=== PATIENT | male | born 1955 | race Caucasian/White ===

== ENCOUNTER 2018-12-04 08:35 | Emergency (ER) | payer SELFPAY ==
--- NOTE | 2018-12-04 08:54 | CT ---
CT brain. HISTORY: Left-sided weakness. Noncontrast enhanced CT images of the brain obtained. The brain is unremarkable. No evidence of intracranial masses, hemorrhages, strokes or contusion seen . Ventricles are of normal size. IMPRESSION: Normal CT brain. Findings discussed with Dr. Leavitt at 8:49 AM on 12/04/2018. Code CR
[2018-12-04 09:19] LABS: #Basophils 0.1 thou/uL (0.0-0.2); #Eosinphils 0.4 thou/uL (0.0-0.7); #Lymphocytes 1.5 thou/uL (1.20-3.40); #Monocytes 0.6 thou/uL (0.11-0.59); %Basophils 1.2 % (0.0-1.0); %Eosinophils 5.4 % (0.0-10.0); %Lymphocytes 23.3 % (21.0-51.0); %Monocytes 8.7 % (0.0-10.0); %Neutrophils 61.3 % (42.0-75.0); Hemoglobin 13.9 g/dL (14.0-18.0); Mean Corpuscular HGB CONC 33.2 g/dL (32.0-36.0); Mean Corpuscular Volume 90.3 fL (78.0-98.0); Mean Platelet Volume 7.6 fL (7.4-10.4); Platelet Count 159 thou/uL (130-400); RBC Distribution Width 13.1 % (11.5-14.5); Red Blood Cell (RBC) Count 4.64 mill/uL (4.70-6.10); White Blood Cell (WBC) Count 6.5 thou/uL (4.8-10.8)
--- NOTE | 2018-12-04 09:20 | CT ---
CAROTID AND INTRACRANIAL CTA: HISTORY: Left arm weakness. TECHNIQUE: Contrast-enhanced CTA of the neck and intracranial CTA performed with 2D and 3D reconstruction images performed. FINDINGS: Multilevel mid cervical changes of spondylosis with broad-based central osteophytes seen, resulting i n multilevel central spinal stenosis. There appears to be critical central spinal stenosis at C2-3 due to broad-based posterior osteophyte. The vertebral arteries are patent. The aortic arch is unremarkable. The right and left common carotid arteries are patent. There is approximately 30% proximal right medial ICA stenosis due to predominantly noncalcified right ICA plaque in the proximal right ICA. More distally, the right and left internal carotid arteries are patent. The TREE, MCA, and DUSTLESS [employer]PERATOR vessels are patent. IMPRESSION: 1. There is 30% proximal right internal carotid artery stenosis. 2: Cervical spinal stenosis. Transcribed Date/Time: 12/04/2018 10:32 AM
[2018-12-04 09:28] LABS: INR-International Normal Ratio 1.1; PTT 29.6 SEC (22.9-36.1); Prothrombin Time 13.8 SEC (12.0-14.7)
--- NOTE | 2018-12-04 09:33 | RAD ---
Exam: Chest one view HISTORY:Facial droop. Slurred speech. Left arm weakness. Comparison: None FINDINGS: Cardiac silhouette:Enlarged Pulmonary vessels: Normal Costophrenic angles: Clear LUNGS: No masses or consolidation. Pneumothorax: None Osseous abnormalities: None IMPRESSION: No acute cardiopulmonary process.
[2018-12-04 09:43] LABS: ALT (SGPT) 15 U/L (8-55); AST (SGOT) 15 U/L (5-34); Alkaline Phosphatase 61 U/L (40-150); Anion Gap 12 mmol/L (10-20); BUN (Urea Nitrogen) 16 mg/dL (8.4-25.7); Bilirubin, Total 0.4 mg/dL (0.2-1.2); CK (CPK) 203 U/L (30-200); Calc. Creatinine Clearance 0 mL/min (70-130); Calcium 9.4 mg/dL (7.8-10.44); Carbon Dioxide 26 mmol/L (23-31); Chloride 102 mmol/L (98-107); Estimated GFR-MDRD 80; Globulin 3.5 g/dL (2.4-3.5); Glucose 147 mg/dL (80-115); Potassium 3.6 mmol/L (3.5-5.1); Protein, Total 7.5 g/dL (5.8-8.1); Sodium 136 mmol/L (136-145)
[2018-12-04] MEDS ORDERED: Aspirin 325 MG TAB ONE (10:40)
--- NOTE | 2018-12-08 11:04 | EKG ---
Test Reason : AMS Blood Pressure : / mmHG Vent. Rate : 077 BPM Atrial Rate : 077 BPM P-R Int : 160 ms QRS Dur : 118 ms QT Int : 388 ms P-R-T Axes : 045 001 053 degrees QTc Int : 439 ms Normal sinus rhythm Non-specific intra-ventricular conduction delay Borderline ECG Confirmed by JANE YOUNGER ([id number]), editor magazine KAROLINE SARAVIA ([id number]) on 12/08/2018 11:03:27 AM Referred By: Confirmed By:JANE YOUNGER
== END 2018-12-04 11:32 | disposition left against medical advice (07) ==
LOC: ERS 08:35
DX: R47.81 Slurred speech (principal); R41.82 Altered mental status, unspecified; R53.1 Weakness; E78.5 Hyperlipidemia, unspecified; I10 Essential (primary) hypertension; Z79.899 Other long term (current) drug therapy
CPT/HCPCS: 36415; 36416; 70450; 70496; 70498; 71045; 80053; 82550; 84484; 85025; 85610; 85730; 93005

== ENCOUNTER 2020-11-10 15:23 | Outpatient (CLI) | payer MEDICARE | END 2020-11-10 15:24 | disposition home or self-care (01) | LOC: BICULT 15:23 | PROVIDERS: ATTEND Family Medicine | DX: R60.0 Localized edema (principal) ==

== ENCOUNTER 2020-11-12 09:28 | Inpatient (IN) | payer MEDICARE ==
[2020-11-12 11:59] VITALS: BMI 40.8
[2020-11-12] MEDS ORDERED: Acetaminophen 325 MG TAB PO PRN (13:25)
[2020-11-12 13:55] LABS: #Basophils 0.1 thou/uL (0.0-0.2); #Eosinphils 0.5 thou/uL (0.0-0.7); #Lymphocytes 1.9 thou/uL (1.20-3.40); #Monocytes 0.8 thou/uL (0.11-0.59); #Neutrophils 5.2 thou/uL (1.40-6.50); %Eosinophils 5.3 % (0.0-10.0); %Lymphocytes 22.3 % (21.0-51.0); %Monocytes 9.5 % (0.0-10.0); %Neutrophils 61.8 % (42.0-75.0); Hemoglobin 11.9 g/dL (14.0-18.0); Mean Corpuscular HGB CONC 34.3 g/dL (32.0-36.0); Mean Corpuscular Hemoglobin 31.1 pg (27.0-31.0); Mean Corpuscular Volume 90.8 fL (78.0-98.0); Mean Platelet Volume 6.6 fL (7.4-10.4); Platelet Count 252 thou/uL (130-400); RBC Distribution Width 12.9 % (11.5-14.5); Red Blood Cell (RBC) Count 3.83 mill/uL (4.70-6.10); White Blood Cell (WBC) Count 8.5 thou/uL (4.8-10.8)
[2020-11-12 14:20] LABS: ALT (SGPT) 20 U/L (8-55); AST (SGOT) 18 U/L (5-34); Albumin 3.7 g/dL (3.4-4.8); Alkaline Phosphatase 60 U/L (40-110); Anion Gap 11 mmol/L (10-20); BUN (Urea Nitrogen) 25 mg/dL (8.4-25.7); Bilirubin, Total 0.4 mg/dL (0.2-1.2); Calc. Creatinine Clearance 89 mL/min (70-130); Calcium 9.9 mg/dL (7.8-10.44); Carbon Dioxide 26 mmol/L (23-31); Chloride 103 mmol/L (98-107); Globulin 4.7 g/dL (2.4-3.5); Glucose 96 mg/dL (80-115); Potassium 4.4 mmol/L (3.5-5.1); Protein, Total 8.4 g/dL (5.8-8.1); Sodium 136 mmol/L (136-145)
[2020-11-12] MEDS: Sodium Chloride 0.9% 1,000 ML IV SCH (16:11)
[2020-11-12] MEDS ORDERED: Atorvastatin Calcium 10 MG TAB PO SCH (18:00)
[2020-11-12] MEDS: NIFEdipine XL 90 MG TAB PO SCH (20:27)
[2020-11-12] MEDS: DorzolamidE/Timolol 2%/0.5% Ophth Soln 10 ml Bottle R EYE SCH (20:28)
[2020-11-12] MEDS: Brimonidine Tartrate 0.2% Ophth Soln 5 ml Bottle R EYE SCH (20:30)
[2020-11-12] MEDS: Pilocarpine 1% Ophth Drops 15 ML BOT R EYE SCH (20:30)
[2020-11-13 04:55] LABS: SARS-CoV-2 NAA Rapid Test Not Detected (NotDetected)
[2020-11-13] MEDS: Sodium Chloride 0.9% 1,000 ML IV SCH (05:12)
[2020-11-13 05:33] LABS: #Basophils 0.1 thou/uL (0.0-0.2); #Eosinphils 0.4 thou/uL (0.0-0.7); #Lymphocytes 1.6 thou/uL (1.20-3.40); #Monocytes 0.8 thou/uL (0.11-0.59); #Neutrophils 5.4 thou/uL (1.40-6.50); %Basophils 0.8 % (0.0-1.0); %Eosinophils 5.1 % (0.0-10.0); %Lymphocytes 18.9 % (21.0-51.0); %Monocytes 10.2 % (0.0-10.0); Mean Corpuscular Hemoglobin 29.8 pg (27.0-31.0); Mean Corpuscular Volume 90.2 fL (78.0-98.0); Mean Platelet Volume 6.4 fL (7.4-10.4); Platelet Count 220 thou/uL (130-400); Red Blood Cell (RBC) Count 3.71 mill/uL (4.70-6.10); White Blood Cell (WBC) Count 8.3 thou/uL (4.8-10.8)
[2020-11-13 05:51] LABS: Hemoglobin A1c 7.4 % (4.0-6.0)
[2020-11-13 05:53] LABS: Anion Gap 13 mmol/L (10-20); BUN (Urea Nitrogen) 21 mg/dL (8.4-25.7); Calc. Creatinine Clearance 96 mL/min (70-130); Carbon Dioxide 25 mmol/L (23-31); Chloride 104 mmol/L (98-107); Glucose 139 mg/dL (80-115); Potassium 4.6 mmol/L (3.5-5.1); Sodium 137 mmol/L (136-145)
[2020-11-13 06:14] LABS: Free T4 (Free Thyroxine) 0.63 ng/dL (0.70-1.48); Thyroid Stimulating Hormone 10.2481 uIU/mL (0.35-4.94)
[2020-11-13] MEDS: Brimonidine Tartrate 0.2% Ophth Soln 5 ml Bottle R EYE SCH ×2 (08:47→20:52)
[2020-11-13] MEDS: Pilocarpine 1% Ophth Drops 15 ML BOT R EYE SCH ×2 (08:47→20:53)
[2020-11-13] MEDS: Levothyroxine Sodium 25 MCG TAB PO SCH (12:50)
[2020-11-13] MEDS ORDERED: Atorvastatin Calcium 10 MG TAB PO SCH (17:00)
[2020-11-13] MEDS: DorzolamidE/Timolol 2%/0.5% Ophth Soln 10 ml Bottle R EYE SCH (20:53)
[2020-11-13] MEDS: NIFEdipine XL 90 MG TAB PO SCH (20:54)
[2020-11-14 04:01] LABS: #Eosinphils 0.4 thou/uL (0.0-0.7); #Lymphocytes 1.5 thou/uL (1.20-3.40); #Monocytes 0.8 thou/uL (0.11-0.59); #Neutrophils 4.9 thou/uL (1.40-6.50); %Basophils 0.3 % (0.0-1.0); %Eosinophils 5.4 % (0.0-10.0); %Lymphocytes 19.8 % (21.0-51.0); %Monocytes 9.8 % (0.0-10.0); %Neutrophils 64.7 % (42.0-75.0); Hemoglobin 11.3 g/dL (14.0-18.0); Mean Corpuscular HGB CONC 32.4 g/dL (32.0-36.0); Mean Corpuscular Hemoglobin 29.5 pg (27.0-31.0); Mean Platelet Volume 6.9 fL (7.4-10.4); Platelet Count 218 thou/uL (130-400); RBC Distribution Width 12.9 % (11.5-14.5); Red Blood Cell (RBC) Count 3.85 mill/uL (4.70-6.10); White Blood Cell (WBC) Count 7.6 thou/uL (4.8-10.8)
[2020-11-14 04:20] LABS: Anion Gap 11 mmol/L (10-20); BUN (Urea Nitrogen) 18 mg/dL (8.4-25.7); Calc. Creatinine Clearance 134 mL/min (70-130); Calcium 8.9 mg/dL (7.8-10.44); Carbon Dioxide 23 mmol/L (23-31); Chloride 105 mmol/L (98-107); Glucose 136 mg/dL (80-115); Potassium 3.8 mmol/L (3.5-5.1); Sodium 135 mmol/L (136-145)
[2020-11-14] MEDS: Levothyroxine Sodium 25 MCG TAB PO SCH (05:41)
[2020-11-14 09:30] VITALS: BP 116/71; TEMP 97.9
[2020-11-14] MEDS: Brimonidine Tartrate 0.2% Ophth Soln 5 ml Bottle R EYE SCH (10:05)
[2020-11-14] MEDS: Pilocarpine 1% Ophth Drops 15 ML BOT R EYE SCH (10:05)
[2020-11-15] MEDS ORDERED: Levothyroxine Sodium 112 MCG TAB PO SCH (06:00)
== END 2020-11-14 13:35 | disposition home or self-care (01) | DRG 683 ==
LOC: ONC 09:28 → OBSVTOIN 11-13 15:49
PROVIDERS: ADMIT Internal Medicine; ATTEND Internal Medicine
DX: N17.9 Acute kidney failure, unspecified (principal); Z68.41 Body mass index [BMI] 40.0-44.9, adult; H40.9 Unspecified glaucoma; I10 Essential (primary) hypertension; R10.9 Unspecified abdominal pain; E03.9 Hypothyroidism, unspecified; I89.0 Lymphedema, not elsewhere classified; E11.9 Type 2 diabetes mellitus without complications; T36.8X5A Adverse effect of other systemic antibiotics, initial encounter; I88.0 Nonspecific mesenteric lymphadenitis; E66.01 Morbid (severe) obesity due to excess calories; Z20.822 Contact with and (suspected) exposure to COVID-19
CPT/HCPCS: 36415; 74176; 76770; 80048; 80053; 83036; 83615; 84439; 84443; 85025; 86140; 93306; G0378; U0002; U0005

== ENCOUNTER 2020-11-26 12:57 | Outpatient (CLI) | payer MEDICARE | END 2020-11-26 12:58 | disposition home or self-care (01) | LOC: BICULT 12:57 | PROVIDERS: ATTEND Family Medicine | DX: R60.0 Localized edema (principal) | CPT/HCPCS: 93970 ==

== ENCOUNTER 2021-03-12 17:20 | Emergency (ER) | payer MEDICARE ==
[2021-03-12 19:21] LABS: #Eosinphils 0.4 thou/uL (0.0-0.7); #Lymphocytes 1.6 thou/uL (1.20-3.40); #Monocytes 0.9 thou/uL (0.11-0.59); #Neutrophils 6.1 thou/uL (1.40-6.50); %Basophils 0.5 % (0.0-1.0); %Eosinophils 4.6 % (0.0-10.0); %Monocytes 10.3 % (0.0-10.0); %Neutrophils 66.7 % (42.0-75.0); Hemoglobin 12.8 g/dL (14.0-18.0); Mean Corpuscular HGB CONC 32.7 g/dL (32.0-36.0); Mean Corpuscular Hemoglobin 29.2 pg (27.0-31.0); Mean Corpuscular Volume 89.1 fL (78.0-98.0); Mean Platelet Volume 7.7 fL (7.4-10.4); Platelet Count 185 thou/uL (130-400); RBC Distribution Width 13.8 % (11.5-14.5); White Blood Cell (WBC) Count 9.1 thou/uL (4.8-10.8)
[2021-03-12 19:39] LABS: ALT (SGPT) 13 U/L (8-55); AST (SGOT) 13 U/L (5-34); Albumin 3.7 g/dL (3.4-4.8); Alkaline Phosphatase 62 U/L (40-110); Anion Gap 12 mmol/L (10-20); BUN (Urea Nitrogen) 16 mg/dL (8.4-25.7); Bilirubin, Total 0.6 mg/dL (0.2-1.2); Calc. Creatinine Clearance 0 mL/min (70-130); Calcium 9.3 mg/dL (7.8-10.44); Carbon Dioxide 30 mmol/L (23-31); Chloride 100 mmol/L (98-107); Globulin 4.2 g/dL (2.4-3.5); Glucose 133 mg/dL (80-115); Potassium 3.7 mmol/L (3.5-5.1); Protein, Total 7.9 g/dL (5.8-8.1); Sodium 138 mmol/L (136-145)
== END 2021-03-12 21:17 | disposition home or self-care (01) ==
LOC: ERS 17:20
DX: I89.0 Lymphedema, not elsewhere classified (principal); E78.5 Hyperlipidemia, unspecified; I10 Essential (primary) hypertension; Z86.69 Personal history of other diseases of the nervous system and sense organs; Z79.810 Long term (current) use of selective estrogen receptor modulators (SERMs); Z79.899 Other long term (current) drug therapy
CPT/HCPCS: 36415; 85025

== ENCOUNTER 2023-01-19 12:57 | Inpatient (IN) | payer MEDICARE ==
[2023-01-19 14:12] LABS: #Basophils 0.1 thou/uL (0.0-0.2); #Eosinphils 0.1 thou/uL (0.0-0.7); #Monocytes 0.9 thou/uL (0.11-0.59); %Basophils 0.3 % (0.0-1.0); %Eosinophils 0.4 % (0.0-10.0); %Lymphocytes 8.2 % (21.0-51.0); %Monocytes 5.7 % (0.0-10.0); Hematocrit 38.1 % (42.0-52.0); Hemoglobin 12.4 g/dL (14.0-18.0); Mean Corpuscular HGB CONC 32.5 g/dL (32.0-36.0); Mean Corpuscular Volume 89.2 fl (78.0-98.0); Mean Platelet Volume 9.7 fL (7.4-10.4); Platelet Count 195 10x3/uL (130-400); RBC Distribution Width 14.6 % (11.5-14.5); Red Blood Cell (RBC) Count 4.27 mill/uL (4.70-6.10); White Blood Cell (WBC) Count 15.5 10x3/uL (4.8-10.8)
[2023-01-19 14:45] LABS: ALT (SGPT) 28 U/L (8-55); AST (SGOT) 79 U/L (5-34); Albumin 3.5 g/dL (3.4-4.8); Alkaline Phosphatase 53 U/L (40-110); Anion Gap 15 mmol/L (10-20); BUN (Urea Nitrogen) 28 mg/dL (8.4-25.7); Bilirubin, Total 1.1 mg/dL (0.2-1.2); Calc. Creatinine Clearance 0 mL/min (70-130); Carbon Dioxide 27 mmol/L (23-31); Chloride 96 mmol/L (98-107); Estimated GFR 58; Globulin 4.1 g/dL (2.4-3.5); Glucose 95 mg/dL (80-115); Lipase 4 U/L (8-78); Potassium 3.7 mmol/L (3.5-5.1); Protein, Total 7.6 g/dL (5.8-8.1); Sodium 134 mmol/L (136-145)
[2023-01-19 16:01] LABS: Bacteria/HPF 4+ HPF (None Seen); Bilirubin Negative (Negative); Blood, Urine 2+ (Negative); CAUTI Indications for Culture Alt mental st,lethar; Clarity Turbid (Clear); Glucose, Urine (Dipstick) Normal (Negative); Ketone, Urine Negative (Negative); Leukocyte 250 Leu/uL (Negative); Nitrite Negative (Negative); Protein, Urine (Dipstick) 50 mg/dL (Neg-Trace); RBC/HPF 0-3 HPF (0-3); Specific Gravity, Urine 1.021 (1.002-1.036); Urobilinogen Normal mg/dL (Less than 2); WBC/HPF 21-50 HPF (0-3); pH, Urine 5.5 (5.0-9.0)
[2023-01-19 16:02] LABS: Urine Culture Reflex Yes Yes
[2023-01-19] MEDS ORDERED: cefTRIAXone (ROCEPHIN) 2 GM VIAL ONE (16:47)
[2023-01-19 18:15] LABS: Lactic Acid 1.7 mmol/L (0.5-2.2)
[2023-01-19] MEDS ORDERED: Ondansetron PF 4 MG/2 ML Vial IVP PRN (19:33)
[2023-01-19] MEDS ORDERED: Acetaminophen 325 MG TAB PO PRN (19:33)
[2023-01-19] MEDS ORDERED: Sodium Chloride 0.9% 1,000 ML IV SCH (19:45)
[2023-01-19 20:52] VITALS: BMI 44.4
[2023-01-19] MEDS: Atorvastatin Calcium 10 MG TAB PO SCH (21:54)
[2023-01-19] MEDS: Brimonidine Tartrate 0.2% Ophth Soln 5 ml Bottle R EYE SCH (22:07)
[2023-01-19] MEDS: Pilocarpine 1% Ophth Drops 15 ML BOT R EYE SCH (22:08)
[2023-01-19] MEDS: DorzolamidE/Timolol 2%/0.5% Ophth Soln 10 ml Bottle R EYE SCH (22:08)
[2023-01-19] MEDS: Heparin 5,000 UNITS/ML VIAL SC SCH (22:14)
[2023-01-20 04:27] LABS: #Eosinphils 0.1 thou/uL (0.0-0.7); #Monocytes 0.7 thou/uL (0.11-0.59); #Neutrophils 10.6 thou/uL (1.40-6.50); %Basophils 0.3 % (0.0-1.0); %Eosinophils 0.5 % (0.0-10.0); %Lymphocytes 8.7 % (21.0-51.0); %Monocytes 5.5 % (0.0-10.0); %Neutrophils 83.6 % (42.0-75.0); Hemoglobin 11.2 g/dL (14.0-18.0); Mean Corpuscular Hemoglobin 28.1 pg (27.0-31.0); Mean Corpuscular Volume 87.9 fl (78.0-98.0); Mean Platelet Volume 9.5 fL (7.4-10.4); Platelet Count 163 10x3/uL (130-400); RBC Distribution Width 14.5 % (11.5-14.5); Red Blood Cell (RBC) Count 3.98 mill/uL (4.70-6.10); White Blood Cell (WBC) Count 12.6 10x3/uL (4.8-10.8)
[2023-01-20 04:53] LABS: Lactic Acid 1.6 mmol/L (0.5-2.2)
[2023-01-20 04:57] LABS: ALT (SGPT) 33 U/L (8-55); AST (SGOT) 76 U/L (5-34); Albumin 3.1 g/dL (3.4-4.8); Alkaline Phosphatase 55 U/L (40-110); Anion Gap 15 mmol/L (10-20); BUN (Urea Nitrogen) 20 mg/dL (8.4-25.7); Bilirubin, Total 0.8 mg/dL (0.2-1.2); Calc. Creatinine Clearance 172 mL/min (70-130); Calcium 8.4 mg/dL (7.8-10.44); Carbon Dioxide 25 mmol/L (23-31); Chloride 100 mmol/L (98-107); Estimated GFR 82; Globulin 3.8 g/dL (2.4-3.5); Glucose 153 mg/dL (80-115); Potassium 3.5 mmol/L (3.5-5.1); Protein, Total 6.9 g/dL (5.8-8.1); Sodium 136 mmol/L (136-145)
[2023-01-20] MEDS: Levothyroxine Sodium 100 MCG TAB PO SCH (06:15)
[2023-01-20] MEDS ORDERED: Heparin 10,000 UNITS/ 10 ML VIAL ONE (08:18)
[2023-01-20] MEDS: Heparin 5,000 UNITS/ML VIAL SC SCH ×3 (09:43→21:15)
[2023-01-20] MEDS: Brimonidine Tartrate 0.2% Ophth Soln 5 ml Bottle R EYE SCH ×2 (09:54→21:14)
[2023-01-20] MEDS: Pilocarpine 1% Ophth Drops 15 ML BOT R EYE SCH ×2 (09:54→21:14)
[2023-01-20] MEDS ORDERED: Dextrose 50% Abboject 50 ML SYRINGE SLOW IVP PRN (10:51)
[2023-01-20] MEDS ORDERED: Dextrose 5% in Water 1,000 ML IV PRN (10:51)
[2023-01-20] MEDS ORDERED: HumaLOG 300 UNITS/3 ML VIAL SC PRN (10:51)
[2023-01-20] MEDS ORDERED: Glucagon 1 MG/ML KIT IM PRN (10:51)
[2023-01-20] MEDS: metFORMIN 500 MG TAB PO SCH (16:07)
[2023-01-20] MEDS ORDERED: cefTRIAXone\\ROCEPHIN 1 GM in Sodium Chloride 0.9% 100 ML IVPB SCH (17:00)
[2023-01-20] MEDS ORDERED: traMADol HCl 50 MG TAB PO PRN (19:52)
[2023-01-20] MEDS: DorzolamidE/Timolol 2%/0.5% Ophth Soln 10 ml Bottle R EYE SCH (21:14)
[2023-01-20] MEDS: Atorvastatin Calcium 10 MG TAB PO SCH (21:25)
[2023-01-21] MEDS: Levothyroxine Sodium 100 MCG TAB PO SCH (05:36)
[2023-01-21 05:45] LABS: #Eosinphils 0.1 thou/uL (0.0-0.7); #Monocytes 0.8 thou/uL (0.11-0.59); #Neutrophils 11.3 thou/uL (1.40-6.50); %Basophils 0.3 % (0.0-1.0); %Eosinophils 0.7 % (0.0-10.0); %Lymphocytes 8.5 % (21.0-51.0); Hemoglobin 10.8 g/dL (14.0-18.0); Mean Corpuscular HGB CONC 32.7 g/dL (32.0-36.0); Mean Corpuscular Hemoglobin 29.3 pg (27.0-31.0); Mean Corpuscular Volume 89.4 fl (78.0-98.0); Platelet Count 172 10x3/uL (130-400); RBC Distribution Width 14.6 % (11.5-14.5); Red Blood Cell (RBC) Count 3.69 mill/uL (4.70-6.10); White Blood Cell (WBC) Count 13.6 10x3/uL (4.8-10.8)
[2023-01-21 06:15] LABS: Anion Gap 13 mmol/L (10-20); BUN (Urea Nitrogen) 14 mg/dL (8.4-25.7); Calc. Creatinine Clearance 200 mL/min (70-130); Calcium 7.9 mg/dL (7.8-10.44); Carbon Dioxide 23 mmol/L (23-31); Chloride 100 mmol/L (98-107); Estimated GFR 95; Glucose 167 mg/dL (80-115); Sodium 133 mmol/L (136-145)
[2023-01-21] MEDS: metFORMIN 500 MG TAB PO SCH ×2 (06:34→15:51)
[2023-01-21] MEDS ORDERED: Electrolyte Replacement Protocol 1 EACH FS SCH (07:15)
[2023-01-21] MEDS ORDERED: Electrolyte Replacement Protocol FS PRN (07:15)
[2023-01-21] MEDS ORDERED: Potassium Chloride 20 MEQ TAB PO SCH (08:00)
[2023-01-21] MEDS: Glimepiride 1 MG TAB PO SCH (08:53)
[2023-01-21] MEDS: Pilocarpine 1% Ophth Drops 15 ML BOT R EYE SCH ×2 (08:54→21:22)
[2023-01-21] MEDS: Heparin 5,000 UNITS/ML VIAL SC SCH (08:54)
[2023-01-21] MEDS: Brimonidine Tartrate 0.2% Ophth Soln 5 ml Bottle R EYE SCH ×2 (08:54→21:21)
[2023-01-21] MEDS ORDERED: Iopamidol-370 76% 500 ML MDV (1 ML CHARGE) ONE (10:47)
[2023-01-21] MEDS: Cefepime 2 GM in Sodium Chloride 0.9% 100 ML IVPB SCH (12:00)
[2023-01-21 14:21] LABS: Potassium 3.4 mmol/L (3.5-5.1)
[2023-01-21] MEDS ORDERED: HYDROcodone/Acetaminophen 5/325 mg Tablet PO PRN (18:53)
[2023-01-21] MEDS: DorzolamidE/Timolol 2%/0.5% Ophth Soln 10 ml Bottle R EYE SCH (21:21)
[2023-01-21] MEDS: Atorvastatin Calcium 10 MG TAB PO SCH (21:21)
[2023-01-21] MEDS: Linezolid 600 MG in Premix Bag 1 BAG IVPB SCH (21:22)
[2023-01-22] MEDS: Cefepime 2 GM in Sodium Chloride 0.9% 100 ML IVPB SCH ×3 (00:07→23:43)
[2023-01-22 06:06] LABS: #Basophils 0.1 thou/uL (0.0-0.2); #Eosinphils 0.2 thou/uL (0.0-0.7); #Neutrophils 10.3 thou/uL (1.40-6.50); %Basophils 0.4 % (0.0-1.0); %Eosinophils 1.3 % (0.0-10.0); %Lymphocytes 8.4 % (21.0-51.0); %Monocytes 7.4 % (0.0-10.0); %Neutrophils 78.2 % (42.0-75.0); Hematocrit 30.2 % (42.0-52.0); Hemoglobin 9.7 g/dL (14.0-18.0); Mean Corpuscular HGB CONC 32.1 g/dL (32.0-36.0); Mean Corpuscular Hemoglobin 28.5 pg (27.0-31.0); Mean Corpuscular Volume 88.8 fl (78.0-98.0); Mean Platelet Volume 9.9 fL (7.4-10.4); Platelet Count 177 10x3/uL (130-400); RBC Distribution Width 14.6 % (11.5-14.5); White Blood Cell (WBC) Count 13.1 10x3/uL (4.8-10.8)
[2023-01-22 06:33] LABS: Anion Gap 12 mmol/L (10-20); BUN (Urea Nitrogen) 11 mg/dL (8.4-25.7); Calc. Creatinine Clearance 196 mL/min (70-130); Calcium 7.9 mg/dL (7.8-10.44); Carbon Dioxide 25 mmol/L (23-31); Chloride 100 mmol/L (98-107); Estimated GFR 94; Glucose 162 mg/dL (80-115); Potassium 3.1 mmol/L (3.5-5.1); Sodium 134 mmol/L (136-145)
[2023-01-22] MEDS: Levothyroxine Sodium 100 MCG TAB PO SCH (06:34)
[2023-01-22] MEDS: metFORMIN 500 MG TAB PO SCH ×2 (06:34→15:34)
[2023-01-22 07:36] LABS: Magnesium 1.4 mg/dL (1.6-2.6)
[2023-01-22] MEDS ORDERED: Potassium Chloride 20 MEQ TAB PO SCH (08:00)
[2023-01-22] MEDS: Glimepiride 1 MG TAB PO SCH (08:52)
[2023-01-22] MEDS: Linezolid 600 MG in Premix Bag 1 BAG IVPB SCH ×2 (08:52→21:51)
[2023-01-22] MEDS: Pilocarpine 1% Ophth Drops 15 ML BOT R EYE SCH ×2 (08:59→21:55)
[2023-01-22] MEDS: Brimonidine Tartrate 0.2% Ophth Soln 5 ml Bottle R EYE SCH ×2 (08:59→21:55)
[2023-01-22] MEDS ORDERED: Magnesium Sulfate In Water 4 GM in Premix Bag 1 BAG IVPB SCH (09:00)
[2023-01-22 14:14] LABS: Potassium 3.7 mmol/L (3.5-5.1)
[2023-01-22] MEDS: Atorvastatin Calcium 10 MG TAB PO SCH (21:52)
[2023-01-22] MEDS: DorzolamidE/Timolol 2%/0.5% Ophth Soln 10 ml Bottle R EYE SCH (21:55)
[2023-01-23] MEDS: Levothyroxine Sodium 100 MCG TAB PO SCH (05:27)
[2023-01-23] MEDS: metFORMIN 500 MG TAB PO SCH ×2 (06:09→17:02)
[2023-01-23 06:29] LABS: Hematocrit 30.9 % (42.0-52.0); Hemoglobin 9.8 g/dL (14.0-18.0); Mean Corpuscular HGB CONC 31.7 g/dL (32.0-36.0); Mean Corpuscular Hemoglobin 28.8 pg (27.0-31.0); Mean Corpuscular Volume 90.9 fl (78.0-98.0); Mean Platelet Volume 10.1 fL (7.4-10.4); Platelet Count 235 10x3/uL (130-400); RBC Distribution Width 14.6 % (11.5-14.5)
[2023-01-23 06:37] LABS: Delete Auto Diff?? YES; Manual Diff?? YES
[2023-01-23 06:54] LABS: Anion Gap 9 mmol/L (10-20); BUN (Urea Nitrogen) 11 mg/dL (8.4-25.7); Calc. Creatinine Clearance 203 mL/min (70-130); Calcium 8.1 mg/dL (7.8-10.44); Carbon Dioxide 26 mmol/L (23-31); Chloride 102 mmol/L (98-107); Estimated GFR 95; Glucose 135 mg/dL (80-115); Magnesium 1.9 mg/dL (1.6-2.6); Potassium 3.4 mmol/L (3.5-5.1); Sodium 134 mmol/L (136-145)
[2023-01-23 07:10] LABS: Band 11 % (5-11); CellaVision Operator ID LAB.GE; Eosinophils 3 % (0-10); Giant Platelets 0.9 % (0-5); Large Platelets 1.7 % (0-5); Lymphocytes 5 % (21-51); Metamyelocyte 2 % (0-0); Monocytes 4 % (0-10); Myelocyte 1 % (0-0); Neutrophil 69 % (42-75); Platelet Adequacy Comment Platelets Normal; Polychromasia SLIGHT = 2-3 cells HPF (0-2); Reactive Lymphocytes 3 % (0-10); Total Cell Count 116
[2023-01-23] MEDS ORDERED: Magnesium 2 GM/50 ML(in water) 2 GM in Premix Bag 1 BAG IVPB SCH (08:00)
[2023-01-23] MEDS ORDERED: Potassium Chloride 20 MEQ TAB PO SCH (08:00)
[2023-01-23] MEDS: Glimepiride 1 MG TAB PO SCH (08:35)
[2023-01-23] MEDS: Pilocarpine 1% Ophth Drops 15 ML BOT R EYE SCH ×2 (08:36→21:33)
[2023-01-23] MEDS: Brimonidine Tartrate 0.2% Ophth Soln 5 ml Bottle R EYE SCH ×2 (08:36→21:32)
[2023-01-23] MEDS: Linezolid 600 MG in Premix Bag 1 BAG IVPB SCH ×2 (10:02→21:34)
[2023-01-23] MEDS: Cefepime 2 GM in Sodium Chloride 0.9% 100 ML IVPB SCH (12:04)
[2023-01-23] MEDS: Atorvastatin Calcium 10 MG TAB PO SCH (21:32)
[2023-01-23] MEDS: DorzolamidE/Timolol 2%/0.5% Ophth Soln 10 ml Bottle R EYE SCH (21:33)
[2023-01-24] MEDS: Levothyroxine Sodium 100 MCG TAB PO SCH (04:37)
[2023-01-24 06:55] LABS: Hematocrit 32.5 % (42.0-52.0); Hemoglobin 10.3 g/dL (14.0-18.0); Mean Corpuscular HGB CONC 31.7 g/dL (32.0-36.0); Mean Corpuscular Hemoglobin 28.5 pg (27.0-31.0); Mean Corpuscular Volume 89.8 fl (78.0-98.0); Mean Platelet Volume 9.4 fL (7.4-10.4); Platelet Count 267 10x3/uL (130-400); RBC Distribution Width 14.7 % (11.5-14.5); Red Blood Cell (RBC) Count 3.62 mill/uL (4.70-6.10); White Blood Cell (WBC) Count 9.4 10x3/uL (4.8-10.8)
[2023-01-24 07:15] LABS: Anion Gap 11 mmol/L (10-20); BUN (Urea Nitrogen) 9 mg/dL (8.4-25.7); Calc. Creatinine Clearance 221 mL/min (70-130); Calcium 8.1 mg/dL (7.8-10.44); Carbon Dioxide 25 mmol/L (23-31); Chloride 105 mmol/L (98-107); Delete Auto Diff?? YES; Estimated GFR 98; Glucose 124 mg/dL (80-115); Manual Diff?? YES; Potassium 3.7 mmol/L (3.5-5.1); Sodium 137 mmol/L (136-145)
[2023-01-24 07:39] LABS: Band 10 % (5-11); Burr Cells SLIGHT = 2-5 cells HPF (0-1); CellaVision Operator ID LAB.GE; Eosinophils 4 % (0-10); Large Platelets 2.9 % (0-5); Lymphocytes 5 % (21-51); Macrocytosis SLIGHT = 6-15 cells HPF (0-5); Metamyelocyte 1 % (0-0); Monocytes 6 % (0-10); Neutrophil 72 % (42-75); Platelet Adequacy Comment Platelets Normal; Polychromasia SLIGHT = 2-3 cells HPF (0-2); Total Cell Count 103
[2023-01-24] MEDS: metFORMIN 500 MG TAB PO SCH ×2 (08:12→17:35)
[2023-01-24] MEDS: Glimepiride 1 MG TAB PO SCH (08:12)
[2023-01-24] MEDS: Brimonidine Tartrate 0.2% Ophth Soln 5 ml Bottle R EYE SCH ×2 (08:13→20:52)
[2023-01-24] MEDS: Pilocarpine 1% Ophth Drops 15 ML BOT R EYE SCH ×2 (08:13→20:52)
[2023-01-24] MEDS ORDERED: cefTRIAXone\\ROCEPHIN 2 GM in Sodium Chloride 0.9% 100 ML IVPB SCH (09:00)
[2023-01-24] MEDS: Linezolid 600 MG in Premix Bag 1 BAG IVPB SCH ×2 (09:39→20:46)
[2023-01-24] MEDS: DorzolamidE/Timolol 2%/0.5% Ophth Soln 10 ml Bottle R EYE SCH (20:46)
[2023-01-24] MEDS: Atorvastatin Calcium 10 MG TAB PO SCH (20:47)
[2023-01-25] MEDS: Levothyroxine Sodium 100 MCG TAB PO SCH (05:41)
[2023-01-25 07:28] VITALS: BP 149/85; TEMP 97.6
[2023-01-25] MEDS: metFORMIN 500 MG TAB PO SCH (08:14)
[2023-01-25] MEDS: Glimepiride 1 MG TAB PO SCH (08:14)
[2023-01-25] MEDS: Brimonidine Tartrate 0.2% Ophth Soln 5 ml Bottle R EYE SCH (08:15)
[2023-01-25] MEDS: Pilocarpine 1% Ophth Drops 15 ML BOT R EYE SCH (08:15)
[2023-01-25] MEDS ORDERED: Linezolid 600 MG TAB PO SCH (09:00)
== END 2023-01-25 11:56 | disposition home or self-care (01) | DRG 872 ==
LOC: ERS 12:57 → ERHOLD 17:47 → OBSVTOIN 01-20 11:06 → T4-A 01-20 12:32
PROVIDERS: ADMIT Internal Medicine Nephrology; ATTEND Emergency Medicine
DX: A41.51 Sepsis due to Escherichia coli [E. coli] (principal); E87.1 Hypo-osmolality and hyponatremia; N17.9 Acute kidney failure, unspecified; N13.6 Pyonephrosis; L03.115 Cellulitis of right lower limb; I10 Essential (primary) hypertension; E11.9 Type 2 diabetes mellitus without complications; I87.2 Venous insufficiency (chronic) (peripheral); Z79.899 Other long term (current) drug therapy; E78.00 Pure hypercholesterolemia, unspecified; Z98.41 Cataract extraction status, right eye; Z98.42 Cataract extraction status, left eye; E86.0 Dehydration; E87.6 Hypokalemia; E03.9 Hypothyroidism, unspecified; H40.9 Unspecified glaucoma; D64.9 Anemia, unspecified; E83.42 Hypomagnesemia; B35.1 Tinea unguium
CPT/HCPCS: 36415; 36416; 70450; 71045; 76770; 80048; 80053; 81001; 82274; 83605; 83690; 83735; 84443; 84484; 85025; 87040; 87077; 87081; 87086; 87186; 93005; 93010; 96361; 96365; J0692; J0696; J1644; J1815; J2020; J3475; J3490; J7050; Q9967

== ENCOUNTER 2023-12-18 13:08 | Outpatient (CLI) | payer MEDICARE | END 2023-12-18 13:09 | disposition home or self-care (01) | LOC: SCSRAD 13:08 | PROVIDERS: ATTEND Family Medicine | DX: M79.642 Pain in left hand (principal); M79.641 Pain in right hand; M25.571 Pain in right ankle and joints of right foot; M25.572 Pain in left ankle and joints of left foot; M19.042 Primary osteoarthritis, left hand | CPT/HCPCS: 36415; 80053; 83520; 84550; 85025; 86038; 86140; 86200; 86225 ==